=== PATIENT | female | born 1965 | race Caucasian/White ===

== ENCOUNTER → 2018-03-03 | Outpatient (CLI) | payer OTHER ==
[~2018-03-03] MED LIST: ARIP2TAB9 PO; BACDS PO; C-PROGESTERONE; CEP500 PO; CIT20 PO; CYAN100070 PO; CYCL10TA29 PO; DIPH-740 PO; DUL30 PO; DULO60CA51 PO; EPIN0.3P15 IM; ESCI20TA38 PO; FAMO-1 PO; IBUP200C71 PO; KET10 PO; LIT300CAP PO; LITH300T18 PO; LITHIUM PO; MODA200T39 PO; PAN40 PO; PHEN-710 PO; THY60 PO; TRAZ50 PO; VIT-40 PO; [UNRECOGNIZED DRUG - CODE] TD; [UNRECOGNIZED DRUG - OTHER]
[2018-03-03 10:23] LABS: PLATELET COUNT, AUTOMATED 297 K/uL (150-450)
== END ==
LOC: LAB 09:54
PROVIDERS: ATTEND Nurse Practitioner Family
DX: G47.19 Other hypersomnia (principal); R10.9 Unspecified abdominal pain; R53.83 Other fatigue; L50.9 Urticaria, unspecified; Z98.84 Bariatric surgery status
CPT/HCPCS: 36415; 82040; 82247; 82306; 82310; 82374; 82435; 82465; 82565; 82607; 82728; 82746; 82947; 83036; 83540; 83550; 83718; 84075; 84132; 84155; 84295; 84425; 84443; 84450; 84460; 84478; 84520; 85025; 85651; 86140; 87338

== ENCOUNTER → 2018-04-04 | Outpatient (CLI) | payer OTHER ==
[~2018-04-04] MED LIST changes: +CHOL500050 PO; +CYAN1000 IJ; +CYAN1000 IM; +HYDR12.561 PO; +IBUP-136 PO; -IBUP200C71 PO; +METF-411 PO; +OXYGENHOME INH
--- NOTE | 2018-04-04 15:06 | RADIOLOGY IMAGING REPORT ---
FACILITY: PATIENT NAME: Claudia Pinto : 1965 MR: [id number] V: [id number] EXAM DATE: ORDERING PHYSICIAN: LAILA FLORES TECHNOLOGIST: Location: [facility] [place] Patient: Claudia Pinto : 1965 Visit/Account:[id number] Date of Sevice: 04/04/2018 Upper GI with small bowel follow-through INDICATION: Pain COMPARISON: None available FINDINGS: The thoracic esophagus, stomach, and duodenum were studied with barium air contrast technique. Effervescent crystals were administered to the patient followed by thick and thin barium solution wit hout difficulty. There is a normal swallowing mechanism with no evidence of aspiration. No evidence of gastroesophageal reflux during the examination. There is no focal stricture or mucosal abnormality of the esophagus. 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 Mildly distended appearance of the air-filled small bowel loops noted w ithout filling defect or focal abnormality on this exam. Small bowel x-rays and spot compression fluoroscopic images were acquired. Small bowel transit time is approximately 120 minutes to the right colon. No focal or diffuse small bowel abnormality is ident ified. The terminal ileum has an unremarkable appearance. DAP: 5703.19 microGy-m2 IMPRESSION: 1. Unremarkable appearance of the esophagus and normal transit of contrast from the gastric pouch in to the small bowel appears mildly distended. 2. Mild delayed transit of contrast to the large bowel with otherwise unremarkable appearance of the small bowel loops distally. Report Dictated By: Saman Kauffman MD at 04/04/2018 3:00 PM Report E-Signed By: Saman Kauffman MD at 04/04/2018 3:02 PM WSN:[email or web address]
== END ==
LOC: RAD 06:50
PROVIDERS: ATTEND Surgery
DX: R11.2 Nausea with vomiting, unspecified (principal); R19.7 Diarrhea, unspecified; R10.9 Unspecified abdominal pain
CPT/HCPCS: 74245

== ENCOUNTER 2018-04-22 00:54 | Day surgery (SDC) | payer OTHER ==
[2018-04-22] VITALS (16 sets, daily range): BP systolic 73–120; BP diastolic 39–97
[~2018-04-22] VITALS: Ht 165.1 cm; Wt 133.8 kg
[2018-04-22] MEDS: NORMOSOL R SOLN(*) 1000 ML BAG 1,000 ML IV PRN ×2 (07:50→12:30)
[2018-04-22 07:55] LABS: PLATELET COUNT, AUTOMATED 295 K/uL (150-450)
[2018-04-22] MEDS ORDERED: LIDOCAINE/SOD BICARB 8.4% SYR ID ONE (08:10)
--- NOTE | 2018-04-22 10:59 | Short(Outpt) Discharge Summary ---
Discharge Summary Reason for Hosp/Final Diag: (1) Diarrhea Status: Chronic Hospital Course & Plan: EGD with biopsies and colonoscopy with biopsies completed without problems. Departure Discharge to: Home, Self Care Discharge Instructions Home Meds Active Scripts Metformin Hcl (METFORMIN HCL) 500 Mg Tablet, 1 TAB PO QDAY, #180 TAB 0 Refills Start with one tab once daily for 1-2 weeks then increase to 1 tab twice daily thereafter Prov:DIOMEDES FLORES MD 04/01/18 Oxygen (OXYGEN) Inha, 2 L INH HS, #2 L Prov:JAYNE RODRIGUEZ APRNP-C 03/14/18 Cholecalciferol (Vitamin D3) (Vitamin D) 50,000 Unit Capsule, 1 CAP PO QWEEK, # 12 CAP 0 Refills Prov:JAYNE RODRIGUEZ APRN-C 03/10/18 Epinephrine (EPIPEN 2-TONYA) 0.3 Mg/0.3 Ml Pen.injctr, 0.3 MG IM ONCE Y for ANAPHYLAXIS, #1 EACH 0 Refills Prov:JAYNE RODRIGUEZ APRN-C 02/24/18 Reported Medications Hydrochlorothiazide (HYDROCHLOROTHIAZIDE) 12.5 Mg Tablet, 1 TAB PO DAILY, TAB 03/10/18 Escitalopram Oxalate (LEXAPRO) 20 Mg Tablet, 1 TAB PO QDAY 09/29/13 Follow up Referrals: General Surgery - 05/07/18 @ Surgery, General with Diomedes Flores Md You have a follow up appointment scheduled with Dr. Flores on 05/07/18, at 4: 30pm. Diet: Regular Activity: As Tolerated Special Instructions: Your upper endscopy and colonoscopy were completed without problems. I didn't find anything suspicious for ulcerative colitis, crohn's disease, ulcers, cancer, etc. I will see you back in a couple of weeks and we'll discuss all of these results and how to improve your GI symptoms. Problem Qualifiers (1) Diarrhea: Diarrhea type: unspecified type Qualified Codes: R19.7 - Diarrhea, unspecified DIOMEDES FLORES MD Apr 22, 2018 10:59
== END 2018-04-22 13:22 | disposition home or self-care (01) ==
LOC: OR 00:54
PROVIDERS: ATTEND Surgery
DX: R19.7 Diarrhea, unspecified (principal)
CPT/HCPCS: 36415; 82040; 82247; 82248; 82310; 82374; 82435; 82565; 82947; 83516; 83690; 84075; 84132; 84155; 84295; 84450; 84460; 84520; 85025; 85651; 86140; 87077; 88305

== ENCOUNTER → 2019-04-28 | Outpatient (CLI) | payer OTHER ==
[~2019-04-28] MED LIST changes: +CHOL500025 PO; +CYAN500T39 PO; +ESCI10TA8 PO; +FEXO-67 PO; +FLUT9.9S IH; +LEVO5TAB28 PO; -METF-411 PO; +METF-450 PO; +MONT10TA PO; +TRAM-420 PO
[2019-04-28 11:52] LABS: PLATELET COUNT, AUTOMATED 371 K/uL (150-450)
== END ==
LOC: LAB 10:25
PROVIDERS: ATTEND Nurse Practitioner Family
DX: E53.8 Deficiency of other specified B group vitamins (principal); R73.01 Impaired fasting glucose; I10 Essential (primary) hypertension; Z98.84 Bariatric surgery status
CPT/HCPCS: 36415; 82040; 82247; 82310; 82374; 82435; 82465; 82565; 82607; 82746; 82947; 83036; 83718; 84075; 84132; 84155; 84207; 84295; 84425; 84450; 84460; 84478; 84520; 85025